=== PATIENT | female | born 1980 | race Caucasian/White ===

== ENCOUNTER 2023-07-13 18:39 | Outpatient (CLI) | payer OTHER, BC, SELFPAY | END 2023-07-13 18:40 | disposition home or self-care (01) | LOC: AMB 07-15 09:51 | PROVIDERS: Visit Provider Emergency Medicine Emergency Medical Services | DX: S29.9XXA Unspecified injury of thorax, initial encounter (principal); V57.1XXA Passenger in pick-up truck or van injured in collision with fixed or stationary object in nontraffic accident, initial encounter; Y92.411 Interstate highway as the place of occurrence of the external cause | CPT/HCPCS: A0998 ==